=== PATIENT | female | born 1965 | race Caucasian/White ===

== ENCOUNTER 2024-07-28 15:57 | Emergency (ER) | payer MEDICAID, SELFPAY ==
[2024-07-28 16:16] VITALS: BP 137/84; PULSE 86; RESP 18; TEMP 36.8; O2SAT 96; BMI 34.8
--- NOTE | 2024-07-28 17:46 | CRLHL7_ITS ---
For Patients: As a result of the Century Cures Act, medical imaging exams and procedure reports are released immediately into your electronic medical record. You may view this report before your referring provider. If you have questions, please contact your health care provider. Indication: Left maxillary pain. History of fracture 1 year ago. Technique: Noncontrast CT of the paranasal sinuses. Coronal and sagittal reformats. Bone and soft tissue algorithms. Comparison: CT sinus 07/09/2017 report Findings: Chronic left orbital floor blowout fracture with moderate-marked circumferential mucosal thickening throughout the left maxillary sinus and air-fluid level. Opacified left infundibulum and hiatus semilunaris, with clear middle meatus. Bilateral frontal recess narrowing from mucosal thickening, mild on the right, moderate on the left. Scattered partial ethmoid air cell opacification. Small secretions right anterior sphenoid sinus. Minor mucoperiosteal thickening at the right maxillary sinus floor. Minimal leftward nasal septal deviation. No paradoxical turbinates or large stephanie bullosa. Clear mastoid air cells and middle ear cavities. Unremarkable TMJs. Orbits and included intracranial structures are unremarkable for technique. IMPRESSION: 1. Chronic left orbital floor blowout fracture. 2. Evidence of acute left maxillary sinusitis, with circumferential mucosal thickening, air-fluid level, and opacified infundibulum/middle meatus. 3. [id number] scattered mucosal thickening elsewhere as detailed. Please note that all CT scans at this facility use dose modulation, iterative reconstruction, and/or weight-based dosing when appropriate to reduce radiation dose to as low as reasonably achievable. Dictated by Giana Quinn MD @ 07/28/2024 6:50:26 PM (Electronically Signed)
--- NOTE | 2024-07-28 17:48 | ED.GENADULT ---
HPI - General Adult General Chief complaint: Eye Problems Stated complaint: swollen left eye, facial pain Time Seen by Provider: 07/28/24 17:20 History of Present Illness HPI narrative: This 59-year-old female comes in with left maxillary facial pain. She states that she has been having some sinus drainage that turned more yellow. This started about 5 days ago. She has significantly worsened pain since last night. She does not report any fevers. She did have a fall about a year ago and had a fracture of the inferior lower orbital and maxillary region on the left side. She states that she has not felt quite back to normal since then. Related Data Previous Rx's ?Medication ?Instructions ?Recorded amoxicillin 875 mg-potassium 1 tab PO BID #20 tabs 07/28/24 clavulanate 125 mg tablet ketorolac 10 mg tablet 10 mg PO Q8H 5 days #15 tabs 07/28/24 Allergies Allergy/AdvReac Type Severity Reaction Status Date / Time liraglutide (From Victoza) AdvReac Intermediate Vomiting Verified 07/28/24 16:26 PFSH PFSH Social History Smoking Status: Current every day smoker What tobacco products do you use: cigarettes Smoking packs per day: 0.25 Smoking cigarettes per day: 5.0 Years smoked: 8 Smoking pack-years: 2.00 Do you use any of these nicotine containing products: None Second hand tobacco smoke exposure: Yes How often do you have a drink containing alcohol: never AUDIT-C Alcohol total score: 0 Non-prescribed substance use: denies use service: No Exam Const: Vital Signs, click to edit/add: Vital Signs - 24 hr 07/28/24 16:16 07/28/24 18:15 Temperature 98.2 F Pulse Rate [Right Pulse Oximeter] 86 72 Respiratory Rate 18 16 Blood Pressure [Ri ght Upper Arm] 137/84 144/85 H Pulse Oximetry 96 95 Oxygen Delivery Me thod Room Air Room Air Course Vital Signs Vital signs: Initial Vital Signs Temperature 98.2 F 07/28/24 16:16 Temperature Source Temporal Artery Scan 07/28/24 16:16 Pulse Rate 86 07/28/24 16:16 Pulse Rhythm Regular 07/28/24 16:16 Pulse Strength 3+ Normal 07/28/24 16:16 Respiratory Rate 18 07/28/24 16:16 Blood Pressure 137/84 07/28/24 16:16 Blood Pressure Mean 101 07/28/24 16:16 Blood Pressure Position Sitting 07/28/24 16:16 Pulse Oximetry 96 07/28/24 16:16 Oxygen Delivery Method Room Air 07/28/24 16:16 Vital Signs Temperature 98.2 F 07/28/24 16:16 Pulse Rate 86 07/28/24 16:16 Respiratory Rate 18 07/28/24 16:16 Blood Pressure 137/84 07/28/24 16:16 Pulse Oximetry 96 07/28/24 16:16 Oxygen Delivery Method Room Air 07/28/24 16:16 Temperature 98.2 F 07/28/24 16:16 Pulse Rate 72 07/28/24 18:15 Respiratory Rate 16 07/28/24 18:15 Blood Pressure 144/85 H 07/28/24 18:15 Pulse Oximetry 95 07/28/24 18:15 Oxygen Delivery Method Room Air 07/28/24 18:15 Medical Decision Making MDM Narrative Medical decision making narrative: This patient comes in with left facial pain and purulent drainage from her nose. A CT scan of the sinuses is obtained and does show large amount of fluid in the left maxillary sinus along with evidence of the prior orbital blowout fracture. The patient received prescriptions for Augmentin and Toradol. I advised her to follow-up with ear nose and throat clinic as she has had recurrent more mild infection symptoms since her fall causing this fracture which occurred bit more than a year ago. Imaging Data CT Sinuses: Radiologist's impression: 1. Chronic left orbital floor blowout fracture. 2. Evidence of acute left maxillary sinusitis, with circumferential mucosal thickening, air-fluid level, and opacified infundibulum/middle meatus. 3. [id number] scattered mucosal thickening elsewhere as detailed. Discharge Plan Discharge Clinical Impression: Sinusitis Patient Disposition: Home, Self-Care Condition: Unchanged Additional Instructions: Take medications as prescribed. Follow-up with ear nose and throat clinic for further evaluation and treatment. Return if worsening. Prescriptions: New ketorolac 10 mg tablet 10 mg PO Q8H 5 Days Qty: 15 0RF amoxicillin-pot clavulanate 875-125 mg tablet 1 tab PO BID Qty: 20 0RF Follow Up/Referrals: Homer Bojorquez MD [Primary Care Provider] - Stand Alone Forms: [employer] Info Instructions
[2024-07-28 18:15] VITALS: BP 144/85; PULSE 72; RESP 16; O2SAT 95
== END 2024-07-28 19:14 | disposition home or self-care (01) ==
PROVIDERS: Emergency Provider Emergency Medicine Emergency Medical Services; PCP Family Medicine
DX: J32.9 Chronic sinusitis, unspecified (principal)
CPT/HCPCS: 70486; 99284